=== PATIENT | male | born 1935 | race Caucasian/White ===

== ENCOUNTER 2017-04-07 10:09 | Emergency (ER) | payer OTHER, MEDICARE ==
[~2017-04-07 10:09] MED LIST: AMIO200T2 PO; AMLO10TA2 PO; DIFL5DRO OD; FINA5TAB41 PO; FURO20TA4 PO; LEVO500T2 PO; LISI-613 PO; METO50TA18 PO; POTA-79 PO; PRED20TA3 PO; SERT100T12 PO; SIMV10TA6 PO; TAMS0.4C32 PO
[2017-04-07 10:29] LABS: APPEARANCE,URINE Clear (CLEAR); BILIRUBIN,URINE Negative (NEGATIVE); COLOR,URINE Yellow (YELLOW); GLUCOSE, URINE (UA) TRACE mg/dL (NEGATIVE); KETONES,URINE Negative (NEGATIVE); LEUKOCYTE ESTERASE ,URINE Negative (NEGATIVE); NITRATE,URINE Negative (NEGATIVE); OCCULT BLOOD,URINE Small (NEGATIVE); PROTEIN,URINE Negative (NEGATIVE)
[2017-04-07 10:32] LABS: BASOPHILS % (AUTO) 0.5 % (0.0-5.0); EOSINOPHILS % (AUTO) 2.9 % (0.0-8.0); HEMATOCRIT 43.6 % (42-54); LYMPHOCYTES % (AUTO) 13.3 % (21.0-51.0); MEAN CORPUSCULAR HEMOGLOBIN 31.6 pg (27.0-33.0); MEAN CORPUSCULAR HGB CONC 33.7 g/dL (32.0-36.0); MEAN CORPUSCULAR VOLUME 93.7 fL (79-99); MONOCYTES % (AUTO) 7.5 % (3.0-13.0); NEUTROPHILS % (AUTO) 75.8 % (40.0-77.0); PLATELET COUNT (AUTO) 189 K/uL (130-400); RED BLOOD CELL COUNT(AUTO) 4.66 MIL/uL (4.50-6.20); RED CELL DISTRIBUTION WIDTH 14.1 % (11.0-15.5); WHITE BLOOD COUNT (AUTO) 7.1 K/uL (4.8-10.8)
[2017-04-07 10:39] LABS: CREATININE 1.2 mg/dL (0.5-1.5)
[2017-04-07 10:44] LABS: ALBUMIN 3.9 g/dL (3.5-5.0); BILIRUBIN,TOTAL 0.7 mg/dL (0.2-1.0); TOTAL PROTEIN, SERUM 7.7 g/dL (6.0-8.3)
[2017-04-07 10:47] LABS: BACTERIA,URINE None Seen /HPF (None Seen); RBC,URINE 0-1 /HPF (0-1); SQUAMOUS EPITHELIAL CELL,UR Rare /LPF (0-2); WBC,URINE None Seen /HPF (0-1)
[2017-04-07] MEDS ORDERED: ORPHENADRINE CITRATE 30 MG/ML ML ONE (11:14)
== END 2017-04-07 13:55 | disposition home or self-care (01) ==
LOC: EDH 10:09
DX: R10.9 Unspecified abdominal pain (principal); I10 Essential (primary) hypertension
CPT/HCPCS: 36415; 74176; 80053; 81001; 85025; 96374; 99285; J2360

== ENCOUNTER → 2017-04-09 | Outpatient (CLI) | payer OTHER, MEDICARE | LOC: RAH 11:48 | PROVIDERS: ATTEND Family Medicine | DX: M51.36 Other intervertebral disc degeneration, lumbar region (principal) | CPT/HCPCS: 72100 ==

== ENCOUNTER → 2018-06-18 | Outpatient (CLI) | payer OTHER, MEDICARE ==
[~2018-06-18] MED LIST changes: -AMIO200T2 PO; +AMIO200T5 PO; -AMLO10TA2 PO; +AMLO10TA7 PO
== END | disposition home or self-care (01) ==
LOC: SHCH 12:16
PROVIDERS: ATTEND Internal Medicine Cardiovascular Disease
DX: I08.0 Rheumatic disorders of both mitral and aortic valves (principal); I48.0 Paroxysmal atrial fibrillation; I48.91 Unspecified atrial fibrillation
CPT/HCPCS: 93306

== ENCOUNTER 2018-11-15 12:44 | Emergency (ER) | payer OTHER, MEDICARE ==
[2018-11-15 13:22] LABS: BASOPHILS % (AUTO) 0.2 % (0.0-5.0); HEMATOCRIT 42.3 % (42-54); LYMPHOCYTES % (AUTO) 4.4 % (21.0-51.0); MEAN CORPUSCULAR HEMOGLOBIN 29.6 pg (27.0-33.0); MEAN CORPUSCULAR HGB CONC 32.3 g/dL (32.0-36.0); MEAN CORPUSCULAR VOLUME 91.7 fL (79-99); MONOCYTES % (AUTO) 1.6 % (3.0-13.0); NEUTROPHILS % (AUTO) 93.8 % (40.0-77.0); PLATELET COUNT (AUTO) 284 K/uL (130-400); RED BLOOD CELL COUNT(AUTO) 4.62 MIL/uL (4.50-6.20); RED CELL DISTRIBUTION WIDTH 14.8 % (11.0-15.5); WHITE BLOOD COUNT (AUTO) 11.5 K/uL (4.8-10.8)
[2018-11-15 13:31] LABS: CREATININE 1.4 mg/dL (0.5-1.5); POTASSIUM 4.2 mmol/L (3.5-5.1)
[2018-11-15 13:36] LABS: ALBUMIN 3.5 g/dL (3.5-5.0); BILIRUBIN,TOTAL 0.5 mg/dL (0.2-1.0); TOTAL PROTEIN, SERUM 9.2 g/dL (6.0-8.3)
[2018-11-15] MEDS ORDERED: IPRATROPIUM/ALBUTEROL SULFATE 3 ML SOLUTION IH ONE (13:51)
== END 2018-11-15 17:06 | disposition home or self-care (01) ==
LOC: EDH 12:44
DX: J06.9 Acute upper respiratory infection, unspecified (principal); R06.00 Dyspnea, unspecified; I48.91 Unspecified atrial fibrillation; I10 Essential (primary) hypertension
CPT/HCPCS: 36415; 71045; 80053; 84484; 85025; 87804; 93005; 94640

== ENCOUNTER → 2019-04-21 | Outpatient (CLI) | payer OTHER, MEDICARE ==
[~2019-04-21] MED LIST changes: -SIMV10TA6 PO; +SIMV10TA97 PO
== END | disposition home or self-care (01) ==
LOC: SHCH 10:09
PROVIDERS: ATTEND Internal Medicine Cardiovascular Disease
DX: I48.0 Paroxysmal atrial fibrillation (principal); I77.1 Stricture of artery
CPT/HCPCS: 93880

== ENCOUNTER 2019-05-21 14:43 | Observation (INO) | payer OTHER, MEDICARE ==
[~2019-05-21] VITALS: Ht 167.6 cm; Wt 80.6 kg
[2019-05-21 15:39] LABS: BASOPHILS % (AUTO) 0.2 % (0.0-5.0); EOSINOPHILS % (AUTO) 0.7 % (0.0-8.0); LYMPHOCYTES % (AUTO) 18.1 % (21.0-51.0); MEAN CORPUSCULAR HEMOGLOBIN 28.4 pg (27.0-33.0); MEAN CORPUSCULAR HGB CONC 32.4 g/dL (32.0-36.0); MEAN CORPUSCULAR VOLUME 87.4 fL (79-99); MONOCYTES % (AUTO) 10.9 % (3.0-13.0); NEUTROPHILS % (AUTO) 69.8 % (40.0-77.0); PLATELET COUNT (AUTO) 347 K/uL (130-400); RED BLOOD CELL COUNT(AUTO) 4.69 MIL/uL (4.50-6.20); RED CELL DISTRIBUTION WIDTH 14.9 % (11.0-15.5); WHITE BLOOD COUNT (AUTO) 9.2 K/uL (4.8-10.8)
[2019-05-21 15:50] LABS: CREATININE 1.3 mg/dL (0.5-1.5); POTASSIUM 3.6 mmol/L (3.5-5.1)
[2019-05-21 15:55] LABS: INR 1.01 (0.85-1.15); PARTIAL THROMBOPLASTIN TIME 28.2 SEC (26.3-35.5); PROTHROMBIN TIME 10.9 SEC (9.6-11.6)
[2019-05-21 16:40] LABS: BILIRUBIN,TOTAL 0.4 mg/dL (0.2-1.0)
[2019-05-21 16:41] LABS: ALBUMIN 2.9 g/dL (3.5-5.0); TOTAL PROTEIN, SERUM 8.6 g/dL (6.0-8.3)
[2019-05-21] MEDS ORDERED: HYDRALAZINE HCL 20 MG/ML VIAL IV PRN (19:00)
[2019-05-21] MEDS ORDERED: ACETAMINOPHEN 325 MG TAB PO PRN (19:00)
[2019-05-21] MEDS ORDERED: ONDANSETRON HCL 4 MG/2 ML VIAL IVP PRN (19:00)
[2019-05-21] MEDS ORDERED: LACTULOSE 20 GM/30 ML UDCUP PO PRN (19:00)
[2019-05-21] MEDS ORDERED: IPRATROPIUM/ALBUTEROL SULFATE 3 ML SOLUTION IH PRN (19:00)
[2019-05-21 20:45] VITALS: BP 165/92
--- NOTE | 2019-05-21 20:50 | NUR ---
Admission Assessment Received pt per stretcher from Ed with c/o SOB prior to admission. Pt claimed was in a clinic, per report from a [facility] for plan 2 D echo not done as pt had c/o SOB, (+) Pleural effusion. Pt admits with Dementia but able to respond appropriately to simple ended questions, O2 at 2L/NC kept from Ed, pt claimed takes medication but can't remember, pt's called attempt to obtain home medication but stated she does not know how to read the medication labels, will bring it in tomorrow. Pt currently denies discomfort, plan of care discuss, made aware pending for Thoracentesis in AM by IR, consent will be obtain in [place] by Warner REILLY later. Pt stated current with his Flu vaccination, Pneumonia unable to recall & willing to have it with this admission. Pt made aware & agreed due to HX: Dementia, bed alarm will be activated. Pt claimed uses depends as he is incontinent with urine, Urinal offered as he is on Lasix IV.
[2019-05-21] MEDS: FUROSEMIDE 10 MG/ML 4ML VIAL IVP SCH (21:18)
[2019-05-22] VITALS (15 sets, daily range): BP systolic 152–185; BP diastolic 79–109
[2019-05-22 04:53] LABS: BASOPHILS % (AUTO) 0.3 % (0.0-5.0); HEMATOCRIT 36.4 % (42-54); LYMPHOCYTES % (AUTO) 22.1 % (21.0-51.0); MEAN CORPUSCULAR HEMOGLOBIN 28.4 pg (27.0-33.0); MEAN CORPUSCULAR HGB CONC 32.4 g/dL (32.0-36.0); MEAN CORPUSCULAR VOLUME 87.5 fL (79-99); NEUTROPHILS % (AUTO) 65.3 % (40.0-77.0); PLATELET COUNT (AUTO) 313 K/uL (130-400); RED BLOOD CELL COUNT(AUTO) 4.16 MIL/uL (4.50-6.20); RED CELL DISTRIBUTION WIDTH 15.2 % (11.0-15.5); WHITE BLOOD COUNT (AUTO) 8.6 K/uL (4.8-10.8)
[2019-05-22 05:12] LABS: ALBUMIN 2.5 g/dL (3.5-5.0); BILIRUBIN,TOTAL 0.5 mg/dL (0.2-1.0); CREATININE 1.4 mg/dL (0.5-1.5); POTASSIUM 3.7 mmol/L (3.5-5.1); TOTAL PROTEIN, SERUM 7.1 g/dL (6.0-8.3)
[2019-05-22 07:34] LABS: INR 1.08 (0.85-1.15); PROTHROMBIN TIME 11.6 SEC (9.6-11.6)
[2019-05-22] MEDS ORDERED: FUROSEMIDE 20 MG TABLET PO SCH (09:00)
[2019-05-22] MEDS: DUREZOL OD SCH ×2 (09:00→20:25)
[2019-05-22] MEDS: FUROSEMIDE 10 MG/ML 4ML VIAL IVP SCH ×2 (09:00→20:25)
[2019-05-22] MEDS: METOPROLOL TARTRATE 50 MG TAB PO SCH ×2 (09:00→20:25)
--- NOTE | 2019-05-22 12:40 | NUR ---
DR LING ON FLOOR , AFTER TIME OUT TO REVIEW LABS , US AND CONSENT , PREFORMED THORACENTESIS WITH 950 CC OF FLUID COLLECTED, ORDERES PLACED BY HIS DISH WASHER AND FLUID COLLECTION LABELED AND TAKING TO LAB, PATIENT ON POST -PROCURED VITAL , DENIES PAIN SITE HELD PRESSURED THEN SITE DRESSED. WILL CONTINUE TO MONITOR
--- NOTE | 2019-05-22 13:00 | NUR ---
ORDERS FROM DR LING TO OBTAIN CHEST CT WITH CONTRAST, ORDERS PLACED
[2019-05-22] MEDS ORDERED: IOHEXOL-350 50ML VIAL IV ONE (14:02)
[2019-05-22 14:06] LABS: TOTAL PROTEIN, SERUM 7.3 g/dL (6.0-8.3)
--- NOTE | 2019-05-22 14:10 | NUR ---
PATIENT OFF UNIT FOR CT SCAN
--- NOTE | 2019-05-22 14:39 | NUR ---
PATIENT BACK FROM CT SCAN EATING LUNCH
[2019-05-22] MEDS: AMLODIPINE BESYLATE 5 MG TAB PO SCH (14:54)
[2019-05-22] MEDS: PANTOPRAZOLE SODIUM 40 MG TABLET.DR PO SCH (14:55)
[2019-05-22] MEDS: FINASTERIDE 5 MG TABLET PO SCH (14:55)
[2019-05-22] MEDS: AMIODARONE HCL 200 MG TABLET PO SCH (14:55)
[2019-05-22] MEDS: LISINOPRIL 20 MG TABLET PO SCH (14:55)
[2019-05-22] MEDS: SERTRALINE HCL 50 MG TABLET PO SCH (14:59)
[2019-05-22] MEDS: POTASSIUM CHLORIDE 20 MEQ ERTAB PO SCH (15:00)
[2019-05-22] MEDS: PNEUMOCOCCAL VACCINE POLYVALENT 0.5 ML/VIAL [PPV] SQ SCH (15:04)
--- NOTE | 2019-05-22 15:04 | NUR ---
BLOOD PRESSURE ELEVATED GIVEN HYDRALAZINE GIVEN SEE MARS
[2019-05-22 15:19] LABS: APPEARANCE BODY FLUID SLIGHTLY CLOUDY (CLEAR); COLOR,BODY FLUID YELLOW (LT YELLOW); SPECIMENTYPE,BODY FLUID PLEURAL; TOTAL VOLUME,BODY FLUID 945 mL
[2019-05-22 15:20] LABS: BODY FLUID RBC 2420 /cu. mm.; BODY FLUID WBC 100 /cu. mm.
[2019-05-22 16:49] LABS: BF LYMPHOCYTE 45 %; BF MONOCYTE 4 %
--- NOTE | 2019-05-22 19:45 | NUR ---
PM Assessment Received pt sited in his bedside chair watching TV, routine assessment done, plan of care discuss, claimed to be breathing much better at this time, denies discomfort. Pt made aware possible to be d/c tomorrow. Pt's IV access unwrapped the coban, site checked, re-wrapped coban with kerlix & reminded pt not pull IV acces as reported pulled it 2x for today. PT (+) HX of dementia.
[2019-05-22] MEDS ORDERED: SIMVASTATIN 10 MG TABLET PO SCH (21:00)
[2019-05-23 03:54] VITALS: BP 113/77
[2019-05-23 08:34] VITALS: BP 156/90
[2019-05-23] MEDS: PNEUMOCOCCAL VACCINE POLYVALENT 0.5 ML/VIAL [PPV] SQ SCH (09:00)
[2019-05-23] MEDS: DUREZOL OD SCH (09:00)
[2019-05-23] MEDS: AMLODIPINE BESYLATE 5 MG TAB PO SCH (09:33)
[2019-05-23] MEDS: LISINOPRIL 20 MG TABLET PO SCH (09:33)
[2019-05-23] MEDS: AMIODARONE HCL 200 MG TABLET PO SCH (09:33)
[2019-05-23] MEDS: FINASTERIDE 5 MG TABLET PO SCH (09:33)
[2019-05-23] MEDS: METOPROLOL TARTRATE 50 MG TAB PO SCH (09:33)
[2019-05-23] MEDS: PANTOPRAZOLE SODIUM 40 MG TABLET.DR PO SCH (09:33)
[2019-05-23] MEDS: SERTRALINE HCL 50 MG TABLET PO SCH (09:33)
[2019-05-23] MEDS: FUROSEMIDE 10 MG/ML 4ML VIAL IVP SCH (09:34)
[2019-05-23] MEDS: POTASSIUM CHLORIDE 20 MEQ ERTAB PO SCH (09:34)
[2019-05-23 13:07] VITALS: BP 145/94
--- NOTE | 2019-05-23 14:11 | NUR ---
PATIENT HAS DISCHARGE INSTRUCTIONS , NOTIFY OF DISCHARGE MY CHARGE NURSE , CHANGE NURSE TOOK PATIENT DOWN TO MEET DOWNSTAIR AND GIVE DISCHARGE INSTRUCTION TO HIS . NO NEW MEDICATION ORDERED, AND PATIENT INSTRUCTED TO FOLLOW -UP WITH [facility] IN 2 WEEKS NUMBER GIVEN TO CALL FOR APPOINTMENT
== END 2019-05-23 14:11 | disposition home or self-care (01) ==
LOC: EDH 14:43 → EDHIP 17:13 → 3CH 19:47
PROVIDERS: ADMIT Internal Medicine Pulmonary Disease; ATTEND Internal Medicine Pulmonary Disease
DX: J90 Pleural effusion, not elsewhere classified (principal); I10 Essential (primary) hypertension; F03.90 Unspecified dementia, unspecified severity, without behavioral disturbance, psychotic disturbance, mood disturbance, and anxiety; G47.00 Insomnia, unspecified; Z79.899 Other long term (current) drug therapy; Z23 Encounter for immunization
CPT/HCPCS: 32554; 36415 ×2; 71045 ×2; 71260; 80053 ×2; 82550; 82945; 83615 ×2; 83986; 84155; 84157; 84484; 85025 ×2; 85610 ×2; 85730; 87071; 87116; 87205; 87206; 89051; 90471; 90732; 93005; 93306; 94664; 96374; 96375; 96376 ×2; 99285; G0378 ×45; J0360; J1940 ×3; Q9967

== ENCOUNTER → 2019-05-21 | Outpatient (CLI) | payer OTHER, MEDICARE | END | disposition home or self-care (01) | LOC: SHCH 10:00 | PROVIDERS: ATTEND Internal Medicine Cardiovascular Disease | DX: I08.3 Combined rheumatic disorders of mitral, aortic and tricuspid valves (principal); I27.20 Pulmonary hypertension, unspecified | CPT/HCPCS: 93306 ==

== ENCOUNTER 2019-06-03 11:23 | Observation (INO) | payer OTHER, MEDICARE ==
[~2019-06-03] VITALS: Ht 182.9 cm; Wt 77.6 kg
[~2019-06-03 11:23] MED LIST changes: -LEVO500T2 PO; -PRED20TA3 PO
[2019-06-03 12:30] LABS: BASOPHILS % (AUTO) 0.4 % (0.0-5.0); EOSINOPHILS % (AUTO) 1.5 % (0.0-8.0); HEMATOCRIT 38.7 % (42-54); LYMPHOCYTES % (AUTO) 13.1 % (21.0-51.0); MEAN CORPUSCULAR HEMOGLOBIN 28.2 pg (27.0-33.0); MEAN CORPUSCULAR HGB CONC 32.3 g/dL (32.0-36.0); MEAN CORPUSCULAR VOLUME 87.4 fL (79-99); MONOCYTES % (AUTO) 9.2 % (3.0-13.0); NEUTROPHILS % (AUTO) 75.4 % (40.0-77.0); PLATELET COUNT (AUTO) 258 K/uL (130-400); RED BLOOD CELL COUNT(AUTO) 4.43 MIL/uL (4.50-6.20); RED CELL DISTRIBUTION WIDTH 15.3 % (11.0-15.5); WHITE BLOOD COUNT (AUTO) 7.9 K/uL (4.8-10.8)
[2019-06-03 12:43] LABS: INR 1.08 (0.85-1.15); PARTIAL THROMBOPLASTIN TIME 33.4 SEC (26.3-35.5); PROTHROMBIN TIME 11.6 SEC (9.6-11.6)
[2019-06-03 12:53] LABS: CREATININE 1.3 mg/dL (0.5-1.5); POTASSIUM 4.5 mmol/L (3.5-5.1)
[2019-06-03 12:59] LABS: ALBUMIN 2.6 g/dL (3.5-5.0); BILIRUBIN,TOTAL 0.8 mg/dL (0.2-1.0); TOTAL PROTEIN, SERUM 7.5 g/dL (6.0-8.3)
[2019-06-03 13:24] LABS: B-TYPE NATRIURETIC PEPTIDE 610 pg/mL (0-100)
[2019-06-03] MEDS ORDERED: POTASSIUM CHLORIDE 20MEQ/100ML 100 ML IV PRN (15:30)
[2019-06-03] MEDS ORDERED: POTASSIUM CHLORIDE 10% ELIXIR 20 MEQ/15 ML UDCUP PO PRN (15:30)
[2019-06-03] MEDS ORDERED: ACETAMINOPHEN 325 MG TAB PO PRN (15:30)
[2019-06-03] MEDS ORDERED: ONDANSETRON HCL 4 MG/2 ML VIAL IVP PRN (15:30)
[2019-06-03] MEDS ORDERED: ACETAMINOPHEN-CODEINE 300/30MG TAB PO PRN (15:30)
[2019-06-03] MEDS ORDERED: DEXTROSE 50%-WATER 50 ML DISP.SYRIN IV PRN (15:30)
[2019-06-03] MEDS ORDERED: GLUCAGON 1MG KIT 1 MG ML IM PRN (15:30)
[2019-06-03] MEDS ORDERED: POTASSIUM CHLORIDE 20 MEQ ERTAB PO PRN (15:30)
[2019-06-03] MEDS ORDERED: HYDRALAZINE HCL 20 MG/ML VIAL IV PRN (15:30)
[2019-06-03] MEDS ORDERED: LIDOCAINE HCL-MPF 1% 2ML VIAL IV PRN (15:30)
--- NOTE | 2019-06-03 16:04 | NUR ---
PROCEDURE PATIENT SCHEDULED FOR U/S GD LT THORACENTESIS. PATIENT RESCHEDULED FOR TOMORROW PER DR Yordy KILGORE.
[2019-06-03] MEDS ORDERED: FUROSEMIDE 10 MG/ML 4ML VIAL ONE (16:24)
[2019-06-03] MEDS ORDERED: IPRATROPIUM/ALBUTEROL SULFATE 3 ML SOLUTION IH ONE (16:37)
[2019-06-03] MEDS: IPRATROPIUM/ALBUTEROL SULFATE 3 ML SOLUTION IH PRN ×2 (17:04→22:45)
--- NOTE | 2019-06-03 22:19 | NUR ---
ADMISSION PT ADMITTED INTO ROOM 402 FROM ER. AWAKE, ALERT AND VERBALLY RESPONSIVE. OXYGEN VIA NC AT 2L/MIN, PT NOTED TO BE WHEEZING AND BECAME SOB UPON TRANSFER FROM STRETCHER TO BED, RESPIRATORY CALLED, PENDING PRN BREATHING TX AND CONTINUOUS PULSE OX CONNECTION. PT WITH WEAKNESS TO BLE NEEDING MAX ASSISTANCE FOR TRANSFER. HOME MEDICATIONS ENTERED AND RESUMED PER ORDER. PT ORIENTED TO ROOM, CALL POWELL WITHIN REACH, BED IN LOWEST POSITION.
[2019-06-03] MEDS: FUROSEMIDE 10 MG/ML 4ML VIAL IV SCH (22:24)
[2019-06-03 22:25] VITALS: BP 147/90
[2019-06-03] MEDS: INSULIN HUMULIN R 100 UNIT/ML 3ML SQ SCH ×2 (22:25→23:03)
[2019-06-03] MEDS ORDERED: MEMA5TAB42 PO (22:55)
[2019-06-04 00:08] VITALS: BP 136/78
[2019-06-04 04:01] LABS: HEMATOCRIT 37.5 % (42-54); MEAN CORPUSCULAR HEMOGLOBIN 27.7 pg (27.0-33.0); MEAN CORPUSCULAR HGB CONC 31.5 g/dL (32.0-36.0); PLATELET COUNT (AUTO) 240 K/uL (130-400); RED BLOOD CELL COUNT(AUTO) 4.26 MIL/uL (4.50-6.20); RED CELL DISTRIBUTION WIDTH 15.4 % (11.0-15.5); WHITE BLOOD COUNT (AUTO) 9.1 K/uL (4.8-10.8)
[2019-06-04] MEDS: FUROSEMIDE 10 MG/ML 4ML VIAL IV SCH (04:10)
[2019-06-04 04:12] VITALS: BP 132/80
[2019-06-04 04:13] LABS: CREATININE 1.3 mg/dL (0.5-1.5); POTASSIUM 3.7 mmol/L (3.5-5.1)
[2019-06-04] MEDS: IPRATROPIUM/ALBUTEROL SULFATE 3 ML SOLUTION IH PRN (04:46)
[2019-06-04] MEDS: INSULIN HUMULIN R 100 UNIT/ML 3ML SQ SCH ×2 (06:56→11:30)
[2019-06-04 08:13] VITALS: BP 133/81
[2019-06-04] MEDS ORDERED: LISINOPRIL 20 MG TABLET PO SCH (09:00)
[2019-06-04] MEDS ORDERED: POTASSIUM CHLORIDE 20 MEQ ERTAB PO SCH (09:00)
[2019-06-04] MEDS ORDERED: SERTRALINE HCL 50 MG TABLET PO SCH (09:00)
[2019-06-04] MEDS ORDERED: FINASTERIDE 5 MG TABLET PO SCH (09:00)
[2019-06-04] MEDS ORDERED: PANTOPRAZOLE SODIUM 40 MG TABLET.DR PO SCH (09:00)
[2019-06-04] MEDS ORDERED: AMIODARONE HCL 200 MG TABLET PO SCH (09:00)
[2019-06-04] MEDS ORDERED: MEMANTINE HCL 5 MG TABLET PO SCH (09:00)
[2019-06-04] MEDS ORDERED: METOPROLOL TARTRATE 50 MG TAB PO SCH (09:00)
[2019-06-04 11:13] LABS: TOTAL PROTEIN, SERUM 7.3 g/dL (6.0-8.3)
[2019-06-04 11:34] VITALS: BP 157/64
--- NOTE | 2019-06-04 11:45 | NUR ---
U/S GUIDED LEFT THORACENTESIS PROCEDURE PERFORMED BY DR. SORENSON. PUNCTURE SITE LEFT POSTERIOR LATERAL BACK AND PATIENT TOLERATED PROCEDURE WELL. TOTAL REMOVED 1.6 LITERS OF CLOUDY YELLOW PLEURAL FLUID. END OF PROCEDURE AT 1155. CATHETER REMOVED AND DRESSING APPLIED. NO BLEEDING NOTED. POST CHEST X-RAY DONE AND READ BY DR. SORENSON. NO PNEUMOTHORAX SEEN. CALLED REPORT TO NEY HIDALGO RN. PATIENT TRANSPORTED TO 4TH FLOOR RM 402 VIA W/C AT 1235. PT STABLE, AAO X3 WITH NO C/O PAIN. SPECIMEN SENT TO LAB.
[2019-06-04 15:53] VITALS: BP 121/81
[2019-06-04] MEDS ORDERED: SIMVASTATIN 10 MG TABLET PO SCH (21:00)
== END 2019-06-04 17:30 | disposition home or self-care (01) ==
LOC: EDH 11:23 → EDHIP 14:20 → 4AH 22:06
PROVIDERS: ADMIT Internal Medicine; ATTEND Internal Medicine
DX: J90 Pleural effusion, not elsewhere classified (principal); I10 Essential (primary) hypertension; F03.90 Unspecified dementia, unspecified severity, without behavioral disturbance, psychotic disturbance, mood disturbance, and anxiety; Z79.899 Other long term (current) drug therapy
CPT/HCPCS: 32555; 36415 ×2; 71045 ×3; 80048; 80053; 82550; 82948 ×4; 83615 ×2; 83880; 84155; 84157; 84484; 85025; 85027; 85610; 85730; 93005; 94640 ×3; 94664; 94760; 96374; 99285; A4215; A4606; G0378 ×11; J1940 ×2

== ENCOUNTER 2020-05-17 22:47 | Inpatient (IN) | payer OTHER, MEDICARE ==
[~2020-05-17] VITALS: Ht 157.5 cm; Wt 94.0 kg
[~2020-05-17 22:47] MED LIST changes: -AMIO200T5 PO; +AMIO200T68 PO; -AMLO10TA7 PO; -DIFL5DRO OD; -LISI-613 PO; +LISI20TA24 PO; +MEMA5TAB42 PO; +SERT-440 PO; -SERT100T12 PO; -TAMS0.4C32 PO
[2020-05-17] MEDS ORDERED: FUROSEMIDE 40MG VIAL ONE (22:50)
[2020-05-17] MEDS ORDERED: NITROGLYCERIN 0.4 MG SL TAB SL ONE (22:50)
[2020-05-17 23:03] LABS: ABG HCO3 22.9 mmol/L (21.0-28.0); ABG OXYGEN SATURATION 84.9 % (95.0-99.0); ABG PCO2 32 mmHg (35-48)
[2020-05-17 23:10] LABS: BASOPHILS % (AUTO) 0.3 % (0.0-5.0); EOSINOPHILS % (AUTO) 0.8 % (0.0-8.0); HEMATOCRIT 40.6 % (42-54); LYMPHOCYTES % (AUTO) 13.8 % (21.0-51.0); MEAN CORPUSCULAR HGB CONC 33.5 g/dL (32.0-36.0); MEAN CORPUSCULAR VOLUME 89.6 fL (79-99); MONOCYTES % (AUTO) 5.1 % (3.0-13.0); NEUTROPHILS % (AUTO) 79.7 % (40.0-77.0); PLATELET COUNT (AUTO) 172 K/uL (130-400); RED BLOOD CELL COUNT(AUTO) 4.53 MIL/uL (4.50-6.20); RED CELL DISTRIBUTION WIDTH 16.7 % (11.0-15.5); WHITE BLOOD COUNT (AUTO) 9.7 K/uL (4.8-10.8)
[2020-05-17 23:18] LABS: INR 1.21 (0.85-1.15)
[2020-05-17 23:20] LABS: PARTIAL THROMBOPLASTIN TIME 30.8 SEC (26.3-35.5)
[2020-05-17 23:33] LABS: B-TYPE NATRIURETIC PEPTIDE 3390 pg/mL (0-100)
[2020-05-17 23:33] LABS: APPEARANCE,URINE Clear (CLEAR); BILIRUBIN,URINE Negative (NEGATIVE); COLOR,URINE Yellow (YELLOW); GLUCOSE, URINE (UA) Negative (NEGATIVE); KETONES,URINE Negative (NEGATIVE); LEUKOCYTE ESTERASE ,URINE Negative (NEGATIVE); NITRATE,URINE Negative (NEGATIVE); OCCULT BLOOD,URINE Nonhemolyzed Trace (NEGATIVE); PH,URINE 7.5 (5.0-8.0); PROTEIN,URINE Negative (NEGATIVE)
[2020-05-17 23:42] LABS: CREATININE 1.4 mg/dL (0.5-1.5); POTASSIUM 3.7 mmol/L (3.5-5.1)
[2020-05-17 23:44] LABS: BACTERIA,URINE None Seen /HPF (None Seen); WBC,URINE 0-1 /HPF (0-1)
[2020-05-17 23:45] LABS: SQUAMOUS EPITHELIAL CELL,UR 0-2 /HPF (0-2)
[2020-05-17 23:47] LABS: ALBUMIN 3.2 g/dL (3.5-5.0); BILIRUBIN,TOTAL 0.9 mg/dL (0.2-1.0); TOTAL PROTEIN, SERUM 8.8 g/dL (6.0-8.3)
[2020-05-18] MEDS ORDERED: DEXAMETHASONE SOD PHOSPHATE 10MG/ML 1ML VIAL ONE (00:16)
[2020-05-18] MEDS ORDERED: ASPIRIN 325 MG TABLET ONE (00:17)
[2020-05-18] MEDS ORDERED: AZITHROMYCIN 250 MG TABLET PO ONE (00:17)
[2020-05-18] MEDS ORDERED: CEFTRIAXONE 1G VIAL ONE (00:17)
[2020-05-18 05:57] VITALS: BP 172/91
[2020-05-18 06:39] LABS: HEMATOCRIT 33.7 % (42-54); MEAN CORPUSCULAR HEMOGLOBIN 29.2 pg (27.0-33.0); MEAN CORPUSCULAR HGB CONC 32.6 g/dL (32.0-36.0); MEAN CORPUSCULAR VOLUME 89.4 fL (79-99); RED BLOOD CELL COUNT(AUTO) 3.77 MIL/uL (4.50-6.20); RED CELL DISTRIBUTION WIDTH 16.4 % (11.0-15.5); WHITE BLOOD COUNT (AUTO) 14.7 K/uL (4.8-10.8)
[2020-05-18 06:51] LABS: CREATININE 1.3 mg/dL (0.5-1.5); MAGNESIUM 1.9 mg/dL (1.80-2.40); POTASSIUM 3.7 mmol/L (3.5-5.1)
[2020-05-18 07:04] LABS: CREATINE KINASE, TOTAL 23 U/L (21-232); MYOGLOBIN 36 ng/mL (10-92); TROPONIN I < 0.04 ng/mL (0.00-0.06)
[2020-05-18] MEDS ORDERED: LIDOCAINE HCL-MPF 1% 2ML VIAL IJ PRN (07:15)
[2020-05-18] MEDS ORDERED: POTASSIUM CHLORIDE 20MEQ/100ML 100 ML IV PRN (07:15)
[2020-05-18] MEDS ORDERED: POTASSIUM CHLORIDE 10% ELIXIR 20 MEQ/15 ML UDCUP PO PRN (07:15)
[2020-05-18] MEDS ORDERED: ONDANSETRON 4MG INJ IVP PRN (07:15)
[2020-05-18] MEDS ORDERED: ACETAMINOPHEN 325 MG TAB PO PRN (07:15)
[2020-05-18] MEDS ORDERED: LABETALOL 20MG SYG IV PRN (07:15)
[2020-05-18] MEDS ORDERED: MAGNESIUM 2GM PREMIX 50ML 50 ML IV SCH (07:15)
[2020-05-18 08:09] VITALS: BP 155/75
[2020-05-18] MEDS: PANTOPRAZOLE 40 MG TAB DR PO SCH (08:24)
[2020-05-18] MEDS: CEFTRIAXONE 1G VIAL IVP SCH (08:24)
[2020-05-18] MEDS: KCL 20 MEQ ERTAB PO PRN (08:24)
[2020-05-18] MEDS: SOLU-MEDROL 125MG VIAL IVP SCH ×3 (08:25→23:04)
[2020-05-18] MEDS: AZITHROMYCIN 500MG+NS 250ML 250 ML IV SCH (08:25)
[2020-05-18] MEDS: FUROSEMIDE 20MG VIAL IVP SCH ×2 (08:25→15:04)
[2020-05-18] MEDS: ENOXAPARIN SODIUM 40 MG/0.4 ML SYRINGE SQ SCH (08:26)
[2020-05-18 12:08] VITALS: BP 139/76
[2020-05-18 12:32] LABS: CREATINE KINASE, TOTAL 22 U/L (21-232); MYOGLOBIN 37 ng/mL (10-92); TROPONIN I < 0.04 ng/mL (0.00-0.06)
[2020-05-18] MEDS ORDERED: UMEC1DIS IH (12:42)
[2020-05-18 16:57] VITALS: BP 143/74
[2020-05-18 20:00] VITALS: BP_SYST 129; BP_SYST 148; BP_DIAS 78; BP_DIAS 79
[2020-05-19] VITALS (8 sets, daily range): BP systolic 148–163; BP diastolic 80–94
[2020-05-19] MEDS: FUROSEMIDE 20MG VIAL IVP SCH ×4 (00:27→22:33)
[2020-05-19 03:40] LABS: HEMATOCRIT 32.7 % (42-54); MEAN CORPUSCULAR HEMOGLOBIN 28.9 pg (27.0-33.0); MEAN CORPUSCULAR HGB CONC 32.4 g/dL (32.0-36.0); MEAN CORPUSCULAR VOLUME 89.1 fL (79-99); RED BLOOD CELL COUNT(AUTO) 3.67 MIL/uL (4.50-6.20); RED CELL DISTRIBUTION WIDTH 16.3 % (11.0-15.5); WHITE BLOOD COUNT (AUTO) 8.6 K/uL (4.8-10.8)
[2020-05-19 03:46] LABS: CREATININE 1.4 mg/dL (0.5-1.5); POTASSIUM 3.7 mmol/L (3.5-5.1)
[2020-05-19] MEDS: SOLU-MEDROL 125MG VIAL IVP SCH ×3 (06:35→22:33)
[2020-05-19] MEDS: PANTOPRAZOLE 40 MG TAB DR PO SCH (08:08)
[2020-05-19] MEDS: CEFTRIAXONE 1G VIAL IVP SCH (08:08)
[2020-05-19] MEDS: AZITHROMYCIN 500MG+NS 250ML 250 ML IV SCH (08:09)
[2020-05-19] MEDS: ENOXAPARIN SODIUM 40 MG/0.4 ML SYRINGE SQ SCH (08:10)
[2020-05-20] VITALS (8 sets, daily range): BP systolic 155–176; BP diastolic 78–96
[2020-05-20] MEDS: CLONIDINE HCL 0.1 MG TABLET PO PRN ×2 (03:05→08:16)
[2020-05-20] MEDS: SOLU-MEDROL 125MG VIAL IVP SCH (06:11)
[2020-05-20] MEDS: PANTOPRAZOLE 40 MG TAB DR PO SCH (08:16)
[2020-05-20] MEDS: CEFTRIAXONE 1G VIAL IVP SCH (08:16)
[2020-05-20 08:17] LABS: CREATININE 1.2 mg/dL (0.5-1.5)
[2020-05-20] MEDS: ENOXAPARIN SODIUM 40 MG/0.4 ML SYRINGE SQ SCH (08:17)
[2020-05-20] MEDS: KCL 20 MEQ ERTAB PO PRN ×4 (08:17→18:16)
[2020-05-20] MEDS: AZITHROMYCIN 500MG+NS 250ML 250 ML IV SCH (08:17)
[2020-05-21 03:57] VITALS: BP 166/86
[2020-05-21 08:14] VITALS: BP 163/90
[2020-05-21] MEDS: CEFTRIAXONE 1G VIAL IVP SCH (09:25)
[2020-05-21] MEDS: PANTOPRAZOLE 40 MG TAB DR PO SCH (09:25)
[2020-05-21] MEDS: FUROSEMIDE 40 MG TABLET PO SCH (09:25)
[2020-05-21] MEDS: AZITHROMYCIN 500MG+NS 250ML 250 ML IV SCH (09:25)
[2020-05-21] MEDS: ENOXAPARIN SODIUM 40 MG/0.4 ML SYRINGE SQ SCH (09:25)
[2020-05-21 12:00] VITALS: BP 162/82
[2020-05-21] MEDS: KCL 20 MEQ ERTAB PO PRN ×2 (14:32→20:32)
[2020-05-21 16:00] VITALS: BP 151/97
[2020-05-21 19:37] VITALS: BP 175/92
[2020-05-21] MEDS: METOPROLOL TARTRATE 50 MG TAB PO SCH (20:24)
[2020-05-21] MEDS: MEMANTINE HCL 5 MG TABLET PO SCH (20:24)
[2020-05-21] MEDS: SIMVASTATIN 10 MG TABLET PO SCH (20:24)
[2020-05-21 23:51] VITALS: BP 160/81
[2020-05-22] VITALS (7 sets, daily range): BP systolic 126–156; BP diastolic 57–85
[2020-05-22] MEDS: KCL 20 MEQ ERTAB PO PRN (00:38)
[2020-05-22 05:35] LABS: MAGNESIUM 1.9 mg/dL (1.80-2.40); POTASSIUM 3.4 mmol/L (3.5-5.1)
[2020-05-22] MEDS: PANTOPRAZOLE 40 MG TAB DR PO SCH (09:02)
[2020-05-22] MEDS: CEFTRIAXONE 1G VIAL IVP SCH (09:02)
[2020-05-22] MEDS: FINASTERIDE 5 MG TABLET PO SCH (09:02)
[2020-05-22] MEDS: METOPROLOL TARTRATE 50 MG TAB PO SCH ×2 (09:02→21:23)
[2020-05-22] MEDS: AZITHROMYCIN 500MG+NS 250ML 250 ML IV SCH (09:02)
[2020-05-22] MEDS: MEMANTINE HCL 5 MG TABLET PO SCH ×2 (09:03→21:23)
[2020-05-22] MEDS: AMIODARONE 200 MG TABLET PO SCH (09:03)
[2020-05-22] MEDS: SERTRALINE HCL 50 MG TABLET PO SCH (09:03)
[2020-05-22] MEDS: LISINOPRIL 20 MG TABLET PO SCH (09:03)
[2020-05-22] MEDS: FUROSEMIDE 40 MG TABLET PO SCH (09:03)
[2020-05-22] MEDS: ENOXAPARIN SODIUM 40 MG/0.4 ML SYRINGE SQ SCH (09:04)
[2020-05-22] MEDS: SIMVASTATIN 10 MG TABLET PO SCH (21:23)
[2020-05-23] MEDS: KCL 20 MEQ ERTAB PO PRN (01:28)
[2020-05-23 04:40] VITALS: BP 142/54
[2020-05-23 08:00] LABS: POTASSIUM 3.6 mmol/L (3.5-5.1)
[2020-05-23 08:59] VITALS: BP 154/85
[2020-05-23] MEDS: AZITHROMYCIN 500MG+NS 250ML 250 ML IV SCH (10:09)
[2020-05-23] MEDS: MEMANTINE HCL 5 MG TABLET PO SCH (10:10)
[2020-05-23] MEDS: ENOXAPARIN SODIUM 40 MG/0.4 ML SYRINGE SQ SCH (10:10)
[2020-05-23] MEDS: FINASTERIDE 5 MG TABLET PO SCH (10:10)
[2020-05-23] MEDS: CEFTRIAXONE 1G VIAL IVP SCH (10:10)
[2020-05-23] MEDS: SERTRALINE HCL 50 MG TABLET PO SCH (10:11)
[2020-05-23] MEDS: PANTOPRAZOLE 40 MG TAB DR PO SCH (10:11)
[2020-05-23] MEDS: FUROSEMIDE 40 MG TABLET PO SCH (10:11)
[2020-05-23] MEDS: METOPROLOL TARTRATE 50 MG TAB PO SCH (10:11)
[2020-05-23] MEDS: LISINOPRIL 20 MG TABLET PO SCH (10:11)
[2020-05-23] MEDS: AMIODARONE 200 MG TABLET PO SCH (10:11)
[2020-05-23 12:30] VITALS: BP 149/76
[2020-05-23 16:45] VITALS: BP 152/79
[2020-05-24] MEDS ORDERED: LEVOFLOXACIN 500 MG TABLET PO SCH (09:00)
== END 2020-05-23 19:01 | DRG 291 ==
LOC: EDH 22:47 → EDHIP 05-18 00:20 → 2AH 05-18 05:02 → 4DH 05-19 21:20
PROVIDERS: ADMIT Internal Medicine; ATTEND Internal Medicine
DX: I11.0 Hypertensive heart disease with heart failure (principal); J18.9 Pneumonia, unspecified organism; I50.43 Acute on chronic combined systolic (congestive) and diastolic (congestive) heart failure; Z20.822 Contact with and (suspected) exposure to COVID-19; F03.90 Unspecified dementia, unspecified severity, without behavioral disturbance, psychotic disturbance, mood disturbance, and anxiety; I25.10 Atherosclerotic heart disease of native coronary artery without angina pectoris; E78.5 Hyperlipidemia, unspecified; I27.20 Pulmonary hypertension, unspecified; I48.0 Paroxysmal atrial fibrillation; N40.0 Benign prostatic hyperplasia without lower urinary tract symptoms; E87.70 Fluid overload, unspecified; I35.0 Nonrheumatic aortic (valve) stenosis; I44.0 Atrioventricular block, first degree
CPT/HCPCS: 36415; 36600; 71045; 71250; 80048; 80053; 81001; 82435; 82550; 82803; 82947; 83605; 83735; 83874; 83880; 84132; 84145; 84295; 84484; 85018; 85025; 85027; 85378; 85610; 85730; 86140; 87040; 87426; 87804; 92610; 93005; 93306; 93356; 94660; 94760; 97039; G0378; J0456; J0696; J1100; J1650; J1940; J2930; U0003

== ENCOUNTER → 2021-01-16 | Outpatient (CLI) | payer OTHER, MEDICARE ==
[~2021-01-16] MED LIST changes: -POTA-79 PO; +UMEC1DIS IH
== END | disposition home or self-care (01) ==
LOC: SHCH 12:56
PROVIDERS: ATTEND Internal Medicine Cardiovascular Disease
DX: I70.203 Unspecified atherosclerosis of native arteries of extremities, bilateral legs (principal)
CPT/HCPCS: 93925

== ENCOUNTER → 2021-12-06 | Outpatient (CLI) | payer OTHER, MEDICARE ==
[2021-12-06 12:35] LABS: ALBUMIN 3.2 g/dL (3.5-5.0); CREATININE 1.1 mg/dL (0.5-1.5); POTASSIUM 4.4 mmol/L (3.5-5.1); TOTAL PROTEIN, SERUM 7.1 g/dL (6.0-8.3)
== END | disposition home or self-care (01) ==
LOC: LAB 10:09
PROVIDERS: ATTEND Internal Medicine Cardiovascular Disease
DX: I10 Essential (primary) hypertension (principal); I35.1 Nonrheumatic aortic (valve) insufficiency; I48.0 Paroxysmal atrial fibrillation
CPT/HCPCS: 36415; 80053; 83880

== ENCOUNTER → 2022-12-19 | Outpatient (CLI) | payer OTHER, MEDICARE ==
[2022-12-19 12:20] LABS: BASOPHILS # (AUTO) 0.04 K/uL (0.00-0.20); BASOPHILS % (AUTO) 0.9 % (0.0-5.0); EOSINOPHILS # (AUTO) 0.06 K/uL (0.00-0.70); EOSINOPHILS % (AUTO) 1.3 % (0.0-8.0); HEMATOCRIT 39.4 % (42-54); IMMATURE GRANULOCYTE ABSOLUTE 0.01 K/uL (0-1); LYMPHOCYTES # (AUTO) 1.2 K/uL (1.0-4.8); LYMPHOCYTES % (AUTO) 26.2 % (21.0-51.0); MEAN CORPUSCULAR HEMOGLOBIN 31.2 pg (27.0-33.0); MEAN CORPUSCULAR HGB CONC 32.2 g/dL (32.0-36.0); MEAN CORPUSCULAR VOLUME 96.8 fL (79-99); MONOCYTES # (AUTO) 0.5 K/uL (0.1-1.0); MONOCYTES % (AUTO) 10.9 % (3.0-13.0); NEUTROPHILS # (AUTO) 2.7 K/uL (1.8-7.7); NEUTROPHILS % (AUTO) 60.5 % (40.0-77.0); PLATELET COUNT (AUTO) 124 K/uL (130-400); RED BLOOD CELL COUNT(AUTO) 4.07 MIL/uL (4.50-6.20); RED CELL DISTRIBUTION WIDTH 14.1 % (11.0-15.5); WHITE BLOOD COUNT (AUTO) 4.5 K/uL (4.8-10.8)
[2022-12-19 12:30] LABS: HEMOGLOBIN A1C 6.6 % (4.0-6.0)
[2022-12-19 12:44] LABS: ALBUMIN 3.7 g/dL (3.5-5.0); BILIRUBIN,TOTAL 1.2 mg/dL (0.2-1.0); MAGNESIUM 2.1 mg/dL (1.80-2.40); POTASSIUM 3.8 mmol/L (3.5-5.1); TOTAL PROTEIN, SERUM 7.1 g/dL (6.0-8.3)
== END | disposition home or self-care (01) ==
LOC: LAB 08:10
PROVIDERS: ATTEND Physician Assistant
DX: I10 Essential (primary) hypertension (principal); E78.5 Hyperlipidemia, unspecified; Z79.899 Other long term (current) drug therapy
CPT/HCPCS: 36415; 80053; 80061; 83036; 83735; 83880; 85025

== ENCOUNTER → 2022-12-26 | Outpatient (CLI) | payer OTHER, MEDICARE | END | disposition home or self-care (01) | LOC: SHCH 10:23 | PROVIDERS: ATTEND Internal Medicine Cardiovascular Disease | DX: I08.8 Other rheumatic multiple valve diseases (principal); I27.20 Pulmonary hypertension, unspecified; I11.9 Hypertensive heart disease without heart failure; E78.5 Hyperlipidemia, unspecified | CPT/HCPCS: 93306 ==

== ENCOUNTER → 2023-02-24 | Outpatient (CLI) | payer OTHER, MEDICARE ==
[2023-02-24 12:52] LABS: ALBUMIN 3.6 g/dL (3.5-5.0); MAGNESIUM 2.1 mg/dL (1.80-2.40); POTASSIUM 4.9 mmol/L (3.5-5.1); TOTAL PROTEIN, SERUM 7.1 g/dL (6.0-8.3)
== END | disposition home or self-care (01) ==
LOC: LAB 09:40
PROVIDERS: ATTEND Internal Medicine Cardiovascular Disease
DX: I10 Essential (primary) hypertension (principal); E78.5 Hyperlipidemia, unspecified
CPT/HCPCS: 36415; 80053; 83735; 83880